=== PATIENT | female | born 1975 | race Caucasian/White ===

== ENCOUNTER 2017-07-30 20:11 | Observation (INO) | payer MEDICAID ==
[~2017-07-30] VITALS: Ht 175.3 cm; Wt 117.9 kg
--- NOTE | ~2017-07-30 | HP ---
PATIENT: CAROLYN GAY MEDICAL RECORD: [id number] ACCOUNT: [id number] LOCATION:[address] : 71 ADMISSION DATE: 07/31/17 HISTORY AND PHYSICAL EXAMINATION DATE OF SERVICE: 07/31/2017 DIAGNOSES: 1. Chest pain, elevated troponin. 2. Obesity. HISTORY OF PRESENT ILLNESS: Mrs. Gay had a sudden onset of chest discomfort last night. She presents with a troponin of 5. She gives a history of a similar episode 5 years ago. She underwent cardiac catheterization revealing no disease. They told her she had a clot that she had washed out. They did not put her on any blood thinner. She had done well until last night when she had a similar episode. PHYSICAL EXAMINATION: GENERAL APPEARANCE: Well-nourished, well-developed, appears stated age. Level of distress, comfortable. PSYCHIATRIC: Mental status, alert, normal affect. Orientation, oriented to time, place and person. EYES: Lids and conjunctiva, noninjected. No discharge, no pallor. ENT: Lips, teeth, gums, normal dentition. Oropharynx, no cyanosis, no pallor. NECK: Carotid arteries, bilateral normal upstroke, no bruits, no thrills. JUGULAR VEINS: No jugular venous pressure or distention. CERVICAL LYMPH NODES: Nontender, nonenlarged. THYROID: Not enlarged. Nontender. No nodules. LUNGS: Respiratory effort, unlabored. CHEST: Normal curvature. No thoracic deformity. No chest wall tenderness. Percussion, resonant. Auscultation, clear. No wheezes, no rales, no rhonchi. CARDIOVASCULAR: Precordial exam, nondisplaced. No heaves or pericardial thrills. Rate and rhythm, regular. Heart sounds, normal S1, normal S2. No S3, no gallop, no rub. Systolic murmur, not heard. Diastolic murmur, not heard. EXTREMITIES: No cyanosis, no edema. Peripheral pulses, full and equal in all extremities, except as noted. No bruits appreciated. ABDOMEN: Soft, nondistended. Normal aorta. No bruit. Nontender. No masses. Liver, nontender, no hepatomegaly. Spleen, nontender, no splenomegaly. MUSCULOSKELETAL: No joint tenderness. No joint swelling. No erythema. NEUROLOGICAL: Normal gait, normal strength, normal tone. SKIN: Warm and dry. OVERALL IMPRESSION: Elevated troponin and chest pain. We will proceed with coronary angiography. Further care depends upon findings of the angiography. TRANSINT:[id number] Voice Confirmation ID: [id number] DOCUMENT ID: [id number] HISTORY AND PHYSICAL [id number] CAROLYN GAY JEFFREY MD at 1218 CC: [id number] DICTATION DATE: 07/31/17 0949 KNIT GOODS MENDER: 07/31/17 1048 DIS IN 07/31/17 [facility] [address] [place] [address]
--- NOTE | ~2017-07-30 | HEMODYNAMI ---
PATIENT:CAROLYN HI MEDICAL RECORD: [id number] : 71 LOCATION:[facility].[address] [facility]# [id number] ADMISSION DATE: 07/31/17 Generatedon:07/31/20179:50 Patient name: CAROLYN HI Patient #: [id number] SSN: D OB: 1975 Date of study: 07/31/2017 Page: Of Hemodynamic Procedure Report Patient Data Patient Demographics Procedure consent was obtained First Name: CAROLYN Gender: Female Last Name: SUSSY : 1975 Middle Initial: R Age: 41 year(s) Patient #: [id number] Race: Unknown Additional ID: [id number] Contact details Address: [facility] [address]NOWN ADDRESS State: [place] City: [place] Zip code: [address] Admission Admission Data Admission Date: 07/31/2017 Admission Time: 0:45 Room #: D.2124 Height (in.): 69 BSA: 2.31 (m2) Height (cm.): 175.26 BMI: 38.39 (kg/m2) Weight (lbs.): 260 Weight (kg.): 117.93 Procedure Procedure Types Cath Procedure Diagnostic Procedure [facility] w/Coronaries Procedure Description Procedure Date Procedure Date: 07/31/2017 Procedure Start Time: 9:41 Procedure End Time: 9:49 Procedure Staff Name Function Mateusz Rdz MD Performing Physician Barb Abbasi RN Nurse Cynthia Smyth RT Scrub Manuel Beckham RT Monitor Procedure Data Cath Procedure Fluoroscopy Diagnostic fluoroscopy Total fluoroscopy Time: 1.2 time: 1.2 min min Diagnostic fluoroscopy Total fluoroscopy dose: 461 dose: 461 mGy mGy Contrast Material Contrast Material Type Amount (ml) Isovue 300 40 Entry Location Entry Primary Successful Side Size Upsize Upsize Entry Closure Beyer ccessful Closure Location (Fr) 1 (Fr) 2 (Fr) Remarks Device Remarks Radial Right 6 Fr Mechanical artery Short Compression Estimated blood loss: 10 ml Diagnostic catheters Device Type Used For End Catheter Placement DIAGNOSTIC Connoquenessing 110cm 5 Procedure Fr catheter ([id number]) Procedure Complications No complications Procedure Medications Medication Administration Route Dosage Oxygen NC 2 l/min Lidocaine 2% added to field 20 Heparin Flush Bag added to field 2 bags (1000units/500ml NS) 0.9% NaCl I.V. 100 ml/hr Versed I.V. 1 mg Fentanyl I.V. 50 mcg Radial Cocktail I.A. 1 syringe (Verapomil 2mg/Nitro 400mcg/Heparin 1500units) Versed I.V. 1 mg Fentanyl I.V. 100 mcg Fentanyl I.V. 50 mcg Hemodynamics Rest BSA: 2.31 (m2) O2 Consumption: Estimated: 222.43 (ml/min) O2 Consumption indexed : Estimated:96.29 (ml/min/m) Heart Rate: 59 (bpm) Snapshots Pre Cath Intra NCS Post Cath Vital Signs Time Heart Resp SPO2 etCO2 NIBP (mmHg) Rhythm Pain Sedation Rate (ipm) (%) (mmHg) Status Level (bpm) 9:19:43 64 12 97 0 142/73(100) NSR 0 (11) 10(A) , No pain 9:24:05 62 37 98 27 146/75(112) NSR 0 (11) 10(A) , No pain 9:28:19 69 24 98 39.1 140/79(123) NSR 0 (11) 10(A) , No pain 9:32:31 66 18 96 35.3 138/79(119) NSR 0 (11) 10(A) , No pain 9:36:45 66 17 96 38.3 140/77(112) NSR 0 (11) 10(A) , No pain 9:41:01 62 14 97 37.6 123/72(99) NSR 0 (11) 9(A) , No pain 9:45:17 78 15 94 39.1 121/73(96) NSR 0 (11) 9(A) , No pain 9:48:36 70 16 94 40.6 117/69(103) NSR 0 (11) 10(A) , No pain Medications Time Medication Route Dose Verified Delivered Reason Notes E ffectiveness by by 9:22:58 Oxygen NC 2 l/min Mateusz Day used for Kajal Abbasi vineyard tender 9:23:05 Lidocaine 2% added 20ml Mateusz Child for local to vial Kajal Rdz MD anesthetic field 9:23:11 Heparin Flush added 2 bags Mateusz Child used for Bag to Kajal Rdz MD procedure (1000units/500ml field NS) 9:23:19 0.9% NaCl I.V. 100 Mateusz Day Per ml/hr Kajal Abbasi RN physician 9:38:16 Versed I.V. 1 mg Mateusz Day for sedation Kajal Abbasi RN 9:38:21 Fentanyl I.V. 50 mcg Mateusz Stockie for sedation Kajal Abbasi RN 9:42:29 Radial Cocktail I.A. 1 Mateusz Child for (Verapomil syringe Kajal Rdz MD vasodilation 2mg/Nitro 400mcg/Heparin 1500units) 9:42:34 Versed I.V. 1 mg Mateusz Stockie for sedation Kajal Abbasi RN 9:42:37 Fentanyl I.V. 100 mcg Mateusz Day for sedation Kajal Abbasi RN 9:45:34 Fentanyl I.V. 50 mcg Mateusz Day for sedation Kajal Abbasi RN Procedure Log Time Note 8:48:52 Time tracking: Regular hours (M-F 7:00 - 5:00) 8:48:56 Plan of Care:Hemodynamics will remain stable., Cardiac rhythm will remain stable., Comfort level will be maintained., Respiratory function will remain adequate., Patient/ family verbilizes understanding of procedure., Procedure tolerated without complication., Recovers from procedure without complications.. 9:03:04 Barb Abbasi RN sent for patient. Start room use. 9:11:01 Patient received from PCU to CCL 2 Alert and oriented. Tansferred to table in Supine position. 9:12:18 Warm blankets applied, and barbra hugger turned on for patient comfort. 9:12:18 Correct patient and procedure confirmed by team. 9:12:22 Signed procedure consent form obtained from patient. 9:12:23 ECG and BP/O2 sat monitors applied to patient. 9:12:25 Full Disclosure recording started 9:18:25 Vital chart was started 9:18:29 Rhythm: sinus rhythm 9:19:02 H&P Date Dictated: 07/31/2017 ER History on chart.. 9:22:58 Oxygen 2 l/min NC was administered by Barb Abbasi RN; used for procedure; 9:23:05 Lidocaine 2% 20ml vial added to field was administered by Mateusz Rdz MD; for local anesthetic; 9:23:11 Heparin Flush Bag (1000units/500ml NS) 2 bags added to field was administered by Mateusz Rdz MD; used for procedure; 9:23:19 0.9% NaCl 100 ml/hr I.V. was administered by Barb Abbasi RN; Per physician; 9:25:36 Baseline sample Acquired. ::44 Pre-procedure instructions explained to patient. 9::44 Pre-op teaching completed and patient verbalized understanding. 9:25:46 Family in patients room. 9:25:47 Patient NPO since Midnight. 9:25:49 Is the patient allergic to Iodine/contrast media? No. 9:25:54 Is patient on blood thinner?Yes 9:25:56 ACC The patient was administered the following blood thiners within the last 24 hours: ACCPlavix 9:25:59 Patient diabetic? No. 9:26:01 Patient not . Patient has had tubal. 9:26:04 Previous problem with sedation/anesthesia? No ? 9:26:06 Snore? Yes 9:26:07 Sleep apnea? No 9:26:08 Deviated septum? No 9:26:09 Opens mouth fully? Yes 9:26:09 Sticks out tongue? Yes 9:26:15 Airway obstruction? Yes COPD 9:26:18 Dentures? No ? 9:26:23 Pre procedure: right dorsailis pedis pulse 1+ Palpable, but thready & weak; easily obliterated 9:26:30 Modified Roman's test Ulnar < 7 seconds 9:26:33 Patient pain scale 0/10 ?. 9:26:37 IV patent on arrival in right antecubital with 0.9% NaCl at O. 9:26:39 Lab results completed and on chart. 9:26:42 Right Radial & Right Groin area was prepped with chlora-prep and draped in sterile fashion 9::44 Alarms reviewed by R. N. 9::44 Sharps counted by scrub and verified by R.N. 9:34:40 Zero performed for pressure channel P1 9:34:58 Patient Weight : 260 lbs 9:34:59 Patient Height : 69 inches 9:37:43 --------ALL STOP TIME OUT------ 9:37:43 Final Timeout: patient, procedure, and site verified with staff and physician. All members of the team are in agreement. 9:37:48 Right Radial & Right Groin site verified by team. 9:37:51 Physical assessment completed. ASA score P 2 - A patient with mild systemic disease as per Mateusz Rdz MD. 9:38:01 Sedation plan: IV Moderate Sedation Medication:Versed, Fentanyl 9:38:16 Versed 1 mg I.V. was administered by Barb Abbasi RN; for sedation; 9:38:21 Fentanyl 50 mcg I.V. was administered by Barb Abbasi RN; for sedation; 9:39:57 Use device set Radial Dx or PCI 9:40:01 Tegaderm 4 x 4 (1626W) opened to sterile field. 9:40:01 ACIST Manifold (38576) opened to sterile field. 9:40:02 ACIST Hand Control (00695) opened to sterile field. 9:40:03 ACIST Syringe (28560) opened to sterile field. 9:40:04 Medline Cath Pack ([id number]) opened to sterile field. 9:40:04 Bag Decanter (2002) opened to sterile field. 9:40:05 DIAGNOSTIC WIRE .035 260cm J wire (246551) opened to sterile field. 9:40:05 MBrace Wrist Support ([id number]) opened to sterile field. 9:40:08 SHEATH 6Fr Prelude Radial ([id number]) opened to sterile field. 9:40:51 Procedure started. 9:41:12 Local anesthetic to right radial artery with Lidocaine 2% by Mateusz Rdz MD.INITIAL ACCESS ONLY 9:41:38 A 6 Fr Short sheath was inserted into the Right Radial artery 9:42:16 IV Extension Set opened to sterile field. 9:42:22 A DIAGNOSTIC Connoquenessing 110cm 5 Fr catheter (422650) was advanced over the wire and used for Procedure. 9:42:29 Radial Cocktail (Verapomil 2mg/Nitro 400mcg/Heparin 1500units) 1 syringe I.A. was administered by Mateusz Rdz MD; for vasodilation; 9:42:34 Versed 1 mg I.V. was administered by Barb Abbasi RN; for sedation; 9:42:37 Fentanyl 100 mcg I.V. was administered by Barb Abbasi RN; for sedation; 9:43:17 LV angiography performed. 9:43:18 LV gram done using TUCEKR 9:43:24 EF : 60 % 9:43:27 Injector settings: Ml/sec: 7, Volume: 15, 9:43:45 LCA angiography performed. 9:44:26 RCA angiography performed. 9:44:59 Catheter removed. 9:45:05 TR BAND Large ([id number]) opened to sterile field. 9:45:21 Sheath removed intact; hemostasis achieved with Mechanical Compression to the Right Radial artery. 9:45:23 Procedure ended.(Physican Out) 9:45:34 Fentanyl 50 mcg I.V. was administered by Barb Abbasi RN; for sedation; 9:47:17 Fluoroscopy time 01.20 minutes. 9:47:22 Flurop Dose total: 461 9:47:22 Fluoroscopy dose: 461 mGy 9:47:26 Contrast amount:Isovue 300 40ml. 9:47:27 Sharps counted by scrub and verified by R.N. 9:47:30 TR band inflated with 10cc of air. 9:47:32 Insertion/operative site no bleeding no hematoma. 9:47:34 Post Procedure Pulses reassessed and unchanged 9:47:36 Post-procedure physical assessment completed. ASA score P 2 - A patient with mild systemic disease as per Mateusz Rdz MD. 9:47:38 Post procedure rhythm: unchanged. 9:47:40 Estimated blood loss: 10 ml 9:47:43 Post procedure instruction explained to patient.Patient verbalizes understanding. 9:47:44 Patient needs reinforcement of post procedure teaching. 9:47:57 Procedure and supply charges have been captured, reviewed, submitted and are correct. 9:47:59 Procedure Complication : No complications 9:48:35 Vital chart was stopped 9:48:36 See physician's report for complete and final results. 9:48:44 Report given to PCU. 9:48:48 Patient transfered to PCU with Bed. 9:49:57 Procedure ended. 9:49:57 Full Disclosure recording stopped 9:50:28 End room use (Document Last) Device Usage Item Name Manufacture Quantity Catalog Number Hospital Part Current M inimal Lot# / Charge Number Stock Stock Serial# Code Tegaderm 4 x 4 3M 1 [id number] [id number] 418666 5 (1626W) ACIST Manifold Acist 1 59776 702810 721266 274097 5 (13661) [employer] Inc ACIST Hand Acist 1 64602 949502 259040 714490 5 Control (38763) [employer] Inc ACIST Syringe Acist 1 06910 096377 118608 102081 2 0 (25506) [employer] Inc Medline Cath Cardinal 1 [id number] 991836 35430 199900 5 Pack Health ([id number]) Bag Decanter Microtek 1 2001S 341077 20319 759860 5 (2001S) Medical Inc. DIAGNOSTIC WIRE [place] 1 809044 002960 918829 452207 3 0 .035 260cm J wire (554007) MBrace Wrist Advanced 1 140-0250-00 697585 25915 318519 5 Support Vascular ([id number]) Dynamics SHEATH 6Fr Merit 1 [id number] 342102 748270 071634 5 Prelude Radial Medical ([id number]) IV Extension Hospira 1 48306-13 007144 54518 794704 5 Set DIAGNOSTIC Terumo 1 40-6923 578467 011204 697236 5 Connoquenessing 110cm 5 Fr catheter (816675) TR BAND Large Terumo 1 [id number] 161704 395050 908407 4 0 ([id number]) Signature Audit [place] Stage Time Signature Unsigned Intra-Procedure 07/31/2017 Manuel Beckham 9:50:47 AM RT(R) Signatures Monitor : Manuel Beckham RT Signature : Date : Time : [facility] [address] [place] [address]
--- NOTE | ~2017-07-30 | DS ---
PATIENT:CAROLYN GAY :71 MEDICAL RECORD: [id number] DISCHARGE SUMMARY ADMISSION DATE: 07/31/17 DISCHARGE DATE: 07/31/17 DIAGNOSES: 1. Non-Q-wave myocardial infarction. 2. No coronary artery disease by cardiac catheterization. HOSPITAL COURSE: Mrs. Gay presents with chest pain rules in for a non-Q-wave myocardial infarction; however. Cardiac catheterization shows no significant coronary artery disease. She had a similar episode 5 years ago and was told she had a primary thrombotic event. She was started on aspirin and Plavix, had no further episodes of chest pain. We did not start a statin secondary to her having no coronary artery disease, did not start a beta jimmy due to bradycardia. Continue the aspirin and Plavix. She will follow up with [facility] in 1 month. TRANSINT:[id number] Voice Confirmation ID: [id number] DOCUMENT ID: [id number] OLGA KATZ MD at 1218 CC: [id number] DICTATION DATE: 07/31/17 0950 ANSWERING SERVICE AGENT: 08/01/17 0235 DIS IN 07/31/17 [facility] [address] [place] [address]
[2017-07-30 22:56] LABS: BASOPHILS 0.4 % (0-2); EOSINOPHILS 2.4 % (0-7); HEMATOCRIT 36.8 % (36.0-48.0); HEMOGLOBIN 11.5 g/dL (12-16); IMMATURE GRANULOCYTES 0.2 % (0-5); LYMPHOCYTES 28.1 % (15-50); MCH 27.1 pg (26.0-34.0); MCHC 31.3 g/dL (31.0-37.0); MCV 86.8 fL (80.0-100.0); MEAN PLATELET VOLUME 10.7 fL (7.4-10.4); MONOCYTES 10.3 % (2-11); NEUTROPHILS 58.6 % (40-80); PLATELET COUNT 202 10x3/uL (130-400); RBC 4.24 10x6/uL (4.00-5.40); RDW 16.3 % (11.5-14.5); WBC 10.7 10x3/uL (4.8-10.8)
[2017-07-30 23:27] LABS: ALBUMIN 3.1 g/dL (3.4-5.0); ALKALINE PHOSPHATASE 60 U/L (46-116); ALT (SGPT) 29 U/L (10-68); BILIRUBIN - TOTAL 0.23 mg/dL (0.2-1.3); CALC OSMOLALITY 277 mosm/kg (275-300); CALCIUM 8.3 mg/dL (8.5-10.1); CARBON DIOXIDE 27.7 mmol/L (21.0-32.0); CHLORIDE - SERUM 105 mmol/L (98-107); CREATININE - SERUM 0.9 mg/dL (0.6-1.3); GLUCOSE 106 mg/dL (74-106); PROTEIN - SERUM 6.7 g/dL (6.4-8.2); SODIUM 140 mmol/L (136-145); UREA NITROGEN 11 mg/dL (7-18); eGFR NON AFRICAN AMERICAN 73 mL/min (90-120)
[2017-07-30 23:36] LABS: CKMB 28.3 U/L (0.0-3.6); CREATINE KINASE 439 UL (21-215); PRO BNP 189 pg/mL (0-125)
[2017-07-30 23:38] LABS: TROPONIN-I 5.428 ng/mL (0.000-0.060)
[2017-07-31 00:19] LABS: APPEARANCE CLEAR (CLEAR); BILIRUBIN NEGATIVE (NEGATIVE); COLOR YELLOW (YELLOW); GLUCOSE NEGATIVE (NEGATIVE); KETONE NEGATIVE (NEGATIVE); NITRITE NEGATIVE (NEGATIVE); PROTEIN NEGATIVE (NEGATIVE); SPECIFIC GRAVITY 1.015 (1.005-1.020); UROBILINOGEN NORMAL (NORMAL)
[2017-07-31 04:36] VITALS: BP 126/66; BMI 17.3
[2017-07-31 05:08] VITALS: BP 125/68
[2017-07-31 07:40] LABS: CKMB 20.9 U/L (0.0-3.6); CREATINE KINASE 359 UL (21-215); TROPONIN-I 5.778 ng/mL (0.000-0.060)
[2017-07-31 08:21] VITALS: BP 110/71
[2017-07-31 10:26] VITALS: Ht 175.3 cm; Wt 117.9 kg
[2017-07-31 11:37] VITALS: BP 116/69
[2017-07-31] MEDS ORDERED: ASPIRIN81 MG PO (13:56)
[2017-07-31] MEDS ORDERED: PLAVIX75 MG PO (13:56)
[2017-07-31 16:18] VITALS: BP 133/70
== END 2017-07-31 16:39 | disposition home or self-care (01) ==
LOC: D.ER 20:11 → OBSVTIME 07-31 00:45 → D.M2 07-31 00:45 → EDBD 07-31 00:45 → D.EDHOLD 07-31 00:45 → D.M2 07-31 01:23
PROVIDERS: Family Medicine; Physician Assistant Medical
DX: I21.4 Non-ST elevation (NSTEMI) myocardial infarction (principal); R00.1 Bradycardia, unspecified; E66.9 Obesity, unspecified